=== PATIENT | male | born 1995 | race Caucasian/White ===

== ENCOUNTER 2020-10-05 19:23 | Emergency (ER) | payer BC ==
[~2020-10-05] VITALS: Ht 182.9 cm; Wt 97.5 kg
[2020-10-05] MEDS ORDERED: FLEXERIL PO (21:00)
[2020-10-05] MEDS ORDERED: NAPROSYN500 MG PO (21:00)
[2020-10-05 21:11] VITALS: BP 148/87
== END 2020-10-05 21:11 | disposition home or self-care (01) ==
LOC: M.ERS 19:23
DX: M94.0 Chondrocostal junction syndrome [Tietze] (principal)